=== PATIENT | female | born 1950 | race Caucasian/White ===

== ENCOUNTER → 2019-03-18 | Outpatient (CLI) | payer MEDICARE ==
[2015-10-12 10:00] VITALS: BP 114/78
[~2019-03-18] MED LIST: BIMA2.5D EACHEYE; CEFP200T PO; DOMPERIDONE 10 MG PO; DULO20CA PO; ERYT250C8 PO; GABA-585 PO; GABA600T7 PO; GABA800T5 PO; GLIP5TAB10 PO; HYDR-2761 PO; INSU100I27 SQ; LEVO112T4 PO; LEVO1CAP3 PO; LEVO25TA4 PO; LIDOCAINE TP; LISI10TA PO; Lorazepam SL; METF500T16 PO; METO10TA81 PO; METO5TAB55 PO; OXYC1TAB15 PO; OXYC1TAB19 PO; PREG75CA PO; PRILOCAINE TP; SITA50TA PO; [UNRECOGNIZED DRUG - OTHER] PO; [UNRECOGNIZED DRUG - REMARK]
== END | disposition home or self-care (01) ==
LOC: SPEC 16:05
PROVIDERS: ATTEND Podiatrist
DX: S86.021D Laceration of right Achilles tendon, subsequent encounter (principal); E11.621 Type 2 diabetes mellitus with foot ulcer; E11.42 Type 2 diabetes mellitus with diabetic polyneuropathy; E11.51 Type 2 diabetes mellitus with diabetic peripheral angiopathy without gangrene; L57.0 Actinic keratosis; M10.9 Gout, unspecified; B35.1 Tinea unguium; X58.XXXD Exposure to other specified factors, subsequent encounter
CPT/HCPCS: 87071; 87075; 87186

== ENCOUNTER → 2019-04-29 | Outpatient (CLI) | payer MEDICARE ==
[2015-10-12 10:00] VITALS: BP 114/78
== END | disposition home or self-care (01) ==
LOC: SPEC 15:53
DX: E11.621 Type 2 diabetes mellitus with foot ulcer (principal)
CPT/HCPCS: 87071; 87075